=== PATIENT | female | born 1985 | race Caucasian/White ===

== ENCOUNTER 2017-07-05 13:04 | Emergency (ER) | payer OTHER ==
[2017-07-05 13:12] VITALS: BMI 31.7
--- NOTE | 2017-07-05 13:51 | PDOC ---
History of Present Illness - General Chief Complaint: Blood Pressure Problem Stated Complaint: BLOOD PRESSURE PROBLEM Time Seen by Provider: 07/05/17 13:47 History Source: Patient Exam Limitations: No Limitations - History of Present Illness Initial Comments: This is a 32 YOF with h/o right renal stone and regular frontal headaches ( about every 2 weeks) who presents c/o frontal headache since awakening this morning, and blood pressure measured to be 160/115 at home. The headache is 4/ 10 and sharp, worse with light and noise, and is located behind both of her eyes , her entire forehead and both temples. It radiates to the back of the head and upper neck. She took Excedrin for it with partial relief. This is no different from her normal headaches, and the last time she had a headache was about 2 weeks ago. She has additionally had mild SOB and mild tiredness, but denies any vision changes, numbness, tingling, focal weakness, incontinence, balance/ walking difficulties, chest pain, abdominal pain, or other symptoms lately. She has previously talked about high blood pressures measured in her PCP's office but has never been on antihypertensive medications. Past History - Past Medical History Allergies/Adverse Reactions: Allergies Allergy/AdvReac Type Severity Reaction Status Date / Time No Known Allergies Allergy Verified 07/05/17 13:12 Home Medications: Ambulatory Orders Hydrochlorothiazide [Hctz -] 12.5 mg PO DAILY #30 cap 07/05/17 COPD: No Other medical history: right side kidney stone at [facility] time 07/05/17 - Immunization History Immunization Up to Date: Yes - Suicide/Smoking/Psychosocial Hx Smoking Status: No Smoking History: Never smoked Have you smoked in the past 12 months: No Number of Cigarettes Smoked Daily: 0 Cigars Per Day: 0 Hx Alcohol Use: No Drug/Substance Use Hx: No Substance Use Type: None Review of Systems - Review of Systems Able to Perform ROS?: Yes Constitutional: No: Chills, Fever, Unexplained wgt Loss HEENTM: No: Nose Congestion, Throat Pain Respiratory: Yes: Shortness of Breath (mild). No: Cough Cardiac (ROS): No: Chest Pain, Edema, Irregular Heart Rate, Lightheadedness, Palpitations ABD/GI: No: Constipated, Diarrhea, Nausea, Vomiting : No: Burning, Dysuria Musculoskeletal: No: Back Pain, Neck Pain Integumentary: No: Bruising, Rash Neurological: Yes: Headache, Other (no incontinence). No: Numbness, Tingling, Weakness, Dizziness Endocrine: No: Unexplained Weight Gain, Unexplained Weight Loss *Physical Exam - Vital Signs Last Vital Signs Temp Pulse Resp BP Pulse Ox 98.5 F 98 H 18 148/104 99 07/05/17 13:08 07/05/17 13:08 07/05/17 13:08 07/05/17 13:08 07/05/17 13:08 - Physical Exam General Appearance: Yes: Nourished, Appropriately Dressed, Other (mildly anxious , accompanied by daughter and other young family member). No: Apparent Distress HEENT: positive: EOMI, JOSELINE, Normal ENT Inspection, Normal Voice, Hearing Grossly Normal. negative: Pale Conjunctivae, Photophobia, Scleral Icterus (R), Scleral Icterus (L), Nasal Congestion, Sinus Tenderness, Hearing Decreased Neck: positive: Trachea midline, Supple. negative: Tender, Rigid Respiratory/Chest: positive: Lungs Clear, Normal Breath Sounds. negative: Respiratory Distress, Crackles, Rhonchi, Stridor, Wheezing Cardiovascular: positive: Regular Rhythm, Regular Rate. negative: Murmur Gastrointestinal/Abdominal: positive: Normal Bowel Sounds, Flat, Soft. negative : Tender, Organomegaly, Pulsatile Mass, Guarding Musculoskeletal: positive: Normal Inspection. negative: CVA Tenderness, Decreased Range of Motion, Vertebral Tenderness Extremity: positive: Normal Capillary Refill, Normal Inspection, Normal Range of Motion. negative: Tender, Cyanosis, Pedal Edema, Swelling, Calf Tenderness, Erythema, Inflammation Integumentary: positive: Normal Color, Dry, Warm. negative: Erythema, Rash, Bruising Neurologic: positive: remnant sorter II-XII NML intact, Fully Oriented, Alert, Normal Mood/ Affect, Normal Response, Motor Strength 5/5, Finger to Nose (normal), Other ( normal gait, no sustained nystagmus on lateral gaze). negative: EOM Palsy, Facial Droop, Numbness, Sensory Deficit, Confused, Disoriented ED Treatment Course - LABORATORY CBC & Chemistry Diagram: 07/05/17 14:45 07/05/17 14:45 *DC/Admit/Observation/Transfer Diagnosis at time of Disposition: Hypertension Qualifiers: Hypertension type: unspecified Qualified Code(s): I10 - Essential (primary) hypertension - Discharge Dispostion Disposition: HOME Condition at time of disposition: Stable Admit: No - Prescriptions Prescriptions: Hydrochlorothiazide [Hctz -] 12.5 mg PO DAILY #30 cap - Referrals Referrals: Funmi Reyes MD [Primary Care Provider] - - Patient Instructions Printed Discharge Instructions: DI for High Blood Pressure Additional Instructions: You were seen in the ER for headache and high blood pressure. We did blood and urine tests and an electrocardiogram, and all the results were normal. You did have high blood pressure during your visit and we believe it is a good idea to start a low dose of anti-hypertensive medicine. We are sending a prescription for HCTZ (hydrochlorothiazide) to your pharmacy. Please pick this up, take it once a day at the same time, and follow up tomorrow or KORIN with your primary doctor. Return to the ER for any new or worsening symptoms like repeat headache , fever, chest pain, shortness of breath, numbness, tingling, weakness of one part of your body, or other symptoms. - Post Discharge Activity
[2017-07-05 14:55] LABS: BASO # 0.1 #; BASO % 0.8 % (0-2.0); EOS # 0.4 #; EOS % 2.7 % (0-4.5); LYMPH # 2.2; MEAN CELL VOLUME 87.8 fl (80-96); MEAN PLT VOLUME 10.9 fl (7.5-11.1); MONO # 1.1 #; NEUT # 10.2 #; PLATELET COUNT 301 K/MM3 (134-434); RDW 12.7 % (11.6-15.6); WHITE BLOOD COUNT 13.9 K/mm3 (4.0-10.0)
[2017-07-05 15:00] LABS: URINE APPEARANCE CLEAR; URINE BILIRUBIN NEGATIVE (NEGATIVE); URINE BLOOD 1+ (NEGATIVE); URINE COLOR STRAW; URINE GLUCOSE (UA) NEGATIVE (NEGATIVE); URINE KETONE NEGATIVE (NEGATIVE); URINE LEUK ESTERASE NEGATIVE (NEGATIVE); URINE NITRITE NEGATIVE (NEGATIVE); URINE PROTEIN NEGATIVE (NEGATIVE); URINE UROBILINOGEN NEGATIVE mg/dL (0.2-1.0)
--- NOTE | 2017-07-05 15:01 | PDOC ---
Attending Attestation - Resident Resident Name: Jacquie Rosales - ED Attending Attestation I have performed the following: I have examined & evaluated the patient, The case was reviewed & discussed with the resident, I agree w/resident's findings & plan, Exceptions are as noted - Medical Decision Making 07/05/17 14:56 A portion of this note was written by my scribe, under my supervision 32-year-old female with no past medical history presents with hypertension. The patient reports that for the last several months, she has had elevated blood pressures which are physician has been tracking. Has noted that intermittently for last few months that she's been having tension-like headaches and occasional shortness of breath but never chest pain. Her physician is deciding whether or not the patient should be on blood pressure medications. Patient is noted to have elevated blood pressures. We'll likely need to initiate blood pressure medications like hydrochlorothiazide and Norvasc. Obtain EKG, labs. I have low suspicion for several or hemorrhage at this time. This is a tension-like headache that is intermittent and has occurred last several months. Not the worst headache of life. We'll touch base with the patient's doctor for further management with a blood pressure medications. <Sylvain Hsu - Last Filed: 07/05/17 15:14> - HPI HPI: 07/05/17 15:30 Pt is a 32 yo F with no PMHx who presents to the ED with elevated blood pressure and headache today. Patient endorses gradual onset of tension headache as she woke up today. Patient reports 7/10 headache, beginning behind her eyes and radiating to the back of her head. Patient went back to sleep to relieve her pain however woke up with worsening pain. Patient took Excedrin and fish oil however denies any relief. Patient notes associated minimal SOB. Patient also reports high blood pressures for the past several months for which she has been seeing her PCP for. Patient is not on any medications. Deies numbness, tingling or weakness. PCP: Dr. Funmi Reyes - Physicial Exam PE: 07/05/17 15:30 GENERAL: Awake, alert, and fully oriented, in no acute distress HEAD: No signs of trauma EYES: PERRLA, EOMI, sclera anicteric, conjunctiva clear ENT: Auricles normal inspection, hearing grossly normal, nares patent, oropharynx clear without exudates. Moist mucosa NECK: Normal ROM, supple, no lymphadenopathy, JVD, or masses LUNGS: Breath sounds equal, clear to auscultation bilaterally. No wheezes, and no crackles HEART: Regular rate and rhythm, normal S1 and S2, no murmurs, rubs or gallops ABDOMEN: Soft, nontender, normoactive bowel sounds. No guarding, no rebound. No masses EXTREMITIES: Normal range of motion, no edema. No clubbing or cyanosis. No cords, erythema, or tenderness NEUROLOGICAL: Cranial nerves II through XII grossly intact. Normal speech, normal gait SKIN: Warm, Dry, normal turgor, no rashes or lesions noted. - Medical Decision Making 07/05/17 15:31 Documentation prepared by Shahana Perez, acting as medical and scientific illustrator for Sylvain Hsu MD, MD/DO. 07/05/17 16:[address] Reyes's office. 07/05/17 16:[address] Reyes's office. 07/05/17 16:57 Left a message at Dr. Reyes's office. Unable to contact PCP. <Shahana Perez - Last Filed: 07/05/17 16:57> Heart Score/ECG Review #1 ECG reviewed & interpreted by me at: 15:00 07/05/17 15:14 NSR 86, nonspecific ST flattening avL, V5-V6, QTC 490 msec, no std/richard <Sylvain Hsu - Last Filed: 07/05/17 15:14>
[2017-07-05 15:04] LABS: URINE BACTERIA RARE /hpf (NONE SEEN); URINE MUCUS RARE; URINE RBC 16 /hpf (0-3); URINE WBC 1 /hpf (3-5)
[2017-07-05 15:19] LABS: ALBUMIN 3.5 g/dl (3.4-5.0); ANION GAP 10 (8-16); BILIRUBIN,TOTAL 0.2 mg/dL (0.2-1.0); CALCIUM 9.1 mg/dL (8.5-10.1); CO2 25 mmol/L (21-32); CREATININE 0.8 mg/dL (0.55-1.02); GLUCOSE,RANDOM 85 mg/dL (74-106); MAGNESIUM 2.1 mg/dL (1.8-2.4); PHOSPHOROUS 3.4 mg/dL (2.5-4.9); SGOT/AST 19 U/L (15-37); SGPT/ALT 30 U/L (12-78); TOT PROT 7.9 g/dl (6.4-8.2)
[2017-07-05 15:22] LABS: ALK PHOS 79 U/L (45-117); CPK 133 IU/L (26-192); TROPONIN I < 0.02 ng/ml (0.00-0.05)
[2017-07-05 17:09] VITALS: BP 143/95; PULSE 89; TEMP 98.3
[2017-07-05 18:21] LABS: URINE LEUK ESTERASE Negative (NEGATIVE)
--- NOTE | 2017-07-06 09:49 | EKG ---
Test Reason : Blood Pressure : / mmHG Vent. Rate : 086 BPM Atrial Rate : 086 BPM P-R Int : 176 ms QRS Dur : 076 ms QT Int : 410 ms P-R-T Axes : 045 -01 -41 degrees QTc Int : 490 ms NORMAL SINUS RHYTHM POSSIBLE LEFT ATRIAL ENLARGEMENT NONSPECIFIC ST AND T WAVE ABNORMALITY PROLONGED QT ABNORMAL ECG NO PREVIOUS ECGS AVAILABLE Confirmed by FLORENCIA DODGE MD ([id number]) on 07/06/2017 9:49:37 AM Referred By: Confirmed By:FLORENCIA DODGE MD
== END 2017-07-05 17:15 | disposition home or self-care (01) ==
LOC: JER 13:04
DX: I10 Essential (primary) hypertension (principal); Z87.442 Personal history of urinary calculi
CPT/HCPCS: 36415; 80053; 81003; 81015; 82550; 83735; 84100; 84484; 84703; 85025; 87086; 93005; 93010; 99283-25